=== PATIENT | female | born 1995 | race Caucasian/White ===

== ENCOUNTER 2017-11-24 08:33 | Emergency (ER) | payer OTHER ==
[~2017-11-24] VITALS: Ht 162.6 cm; Wt 121.0 kg
[~2017-11-24 08:33] MED LIST: CLIN150 PO; FAMO20 PO; IBUP800T23 PO
[2017-11-24 08:35] VITALS: BP 156/82; PULSE 112; RESP 20; TEMP 98.4; O2SAT 100
[2017-11-24 08:37] VITALS: PULSE 121
[2017-11-24] MEDS ORDERED: LEVO125T4 PO (09:13)
[2017-11-24] MEDS ORDERED: RANI150T PO (09:13)
--- NOTE | 2017-11-24 09:28 | PD ---
HPI Chief Complaint: Cardiac Complaint Time Seen by Provider: 09:10 Travel History International Travel<30 days: No Contact w/Intl Traveler<30days: No Traveled to known affect area: No History of Present Illness HPI Patient is a 22-year-old female morbidly obese family history of mom having her first heart attack in the late 40s presents emergency department for evaluation of palpitations and a "squishy" feeling in the middle of her chest.. States symptoms started about 300 this morning approximate 6 hours prior to presentation. Denies any chest pain shortness of breath abdominal pain nausea vomiting diarrhea constipation. States symptoms are minimal, context as above, associated signs symptoms as above, waxing and waning. PFSH Past Medical History Medical History: Denies Significant Hx Diminished Hearing: No GERD: Yes Thyroid Disease: Yes ?: Not Past Surgical History Surgical History: No Previous Surgery Social History Alcohol Use: No Tobacco Use: No Substance Use: No Allergies-Medications (Allergen,Severity, Reaction): Coded Allergies: amoxicillin (Unverified Adverse Reaction, Intermediate, HIVES, 06/21/17) Reported Meds & Prescriptions Reported Meds & Active Scripts Active Reported Levothyroxine (Levothyroxine Sodium) 125 Mcg Tab 125 Mcg PO DAILY Ranitidine (Ranitidine HCl) 150 Mg Tab 150 Mg PO BID Review of Systems Except as stated in HPI: all other systems reviewed are Neg Physical Exam Narrative GENERAL: Well-developed well-nourished in no obvious distress, morbidly obese SKIN: Focused skin assessment warm/dry. HEAD: Atraumatic. Normocephalic. EYES: Pupils equal and round. No scleral icterus. No injection or drainage. ENT: No nasal bleeding or discharge. Mucous membranes pink and moist. NECK: Trachea midline. No JVD. CARDIOVASCULAR: Regular rate and rhythm. No murmur appreciated. No murmurs gallops or rubs, 2+ bilateral equal pulses in all 4 extremities. RESPIRATORY: No accessory muscle use. Clear to auscultation. Breath sounds equal bilaterally. GASTROINTESTINAL: Abdomen soft, non-tender, nondistended. Hepatic and splenic margins not palpable. MUSCULOSKELETAL: No obvious deformities. No clubbing. No cyanosis. No edema. NEUROLOGICAL: Awake and alert. No obvious cranial nerve deficits. Motor grossly within normal limits. Normal speech. PSYCHIATRIC: Appropriate mood and affect; insight and judgment normal. Data Data Last Documented VS Vital Signs Date Time Temp Pulse Resp B/P (MAP) Pulse Ox O2 Delivery O2 Flow Rate FiO2 11/24/17 11:53 11/24/17 09:13 Room Air 11/24/17 08:37 121 11/24/17 08:35 98.4 20 100 Orders Orders Electrocardiogram (11/24/17 08:39) Complete Blood Count With Diff (11/24/17 09:33) Comprehensive Metabolic Panel (11/24/17 09:33) Magnesium (Mg) (11/24/17 09:33) Troponin I (11/24/17 09:33) Chest, Single Ap (11/24/17 09:33) Ecg Monitoring (11/24/17 09:33) Iv Access Insert/Monitor (11/24/17 09:33) Oximetry (11/24/17 09:33) Oxygen Administration (11/24/17 09:33) Sodium Chloride 0.9% Flush (Ns Flush) (11/24/17 09:45) Thyroid Stimulating Hormone (11/24/17 09:33) Free T3 (11/24/17 09:33) Free Thyroxine (T4) (11/24/17 09:33) Ed Discharge Order (11/24/17 11:38) Labs Laboratory Tests Test 11/24/17 09:35 White Blood Count 7.3 TH/MM3 Red Blood Count 5.00 MIL/MM3 Hemoglobin 16.0 GM/DL Hematocrit 46.3 % Mean Corpuscular Volume 92.7 FL Mean Corpuscular Hemoglobin 32.1 PG Mean Corpuscular Hemoglobin Concent 34.6 % Red Cell Distribution Width 13.5 % Platelet Count 207 TH/MM3 Mean Platelet Volume 9.6 FL Neutrophils (%) (Auto) 49.1 % Lymphocytes (%) (Auto) 39.3 % Monocytes (%) (Auto) 8.4 % Eosinophils (%) (Auto) 2.8 % Basophils (%) (Auto) 0.4 % Neutrophils # (Auto) 3.6 TH/MM3 Lymphocytes # (Auto) 2.9 TH/MM3 Monocytes # (Auto) 0.6 TH/MM3 Eosinophils # (Auto) 0.2 TH/MM3 Basophils # (Auto) 0.0 TH/MM3 CBC Comment DIFF FINAL Differential Comment Blood Urea Nitrogen 13 MG/DL Creatinine 0.77 MG/DL Random Glucose 81 MG/DL Total Protein 8.1 GM/DL Albumin 4.7 GM/DL Calcium Level 9.6 MG/DL Magnesium Level 2.2 MG/DL Alkaline Phosphatase 75 U/L Aspartate Amino Transf (AST/SGOT) 75 U/L Alanine Aminotransferase (ALT/SGPT) 138 U/L Total Bilirubin 0.6 MG/DL Sodium Level 142 MEQ/L Potassium Level 3.7 MEQ/L Chloride Level 108 MEQ/L Carbon Dioxide Level 28.7 MEQ/L Anion Gap 5 MEQ/L Estimat Glomerular Filtration Rate 94 ML/MIN Troponin I LESS THAN 0.02 NG/ML Free Thyroxine 0.97 NG/DL Free Triiodothyronine (T3) pg/dL 3.60 PG/ML Thyroid Stimulating Hormone 3rd Gen 5.060 uIU/ML MDM Medical Decision Making Medical Screen Exam Complete: Yes Emergency Medical Condition: Yes Differential Diagnosis Palpitations, ACS unlikely, MO unlikely Narrative Course Patient roomed in the emergency department, she appears well in no obvious distress. Initial workup including chest x-ray EKG labs including troponin negative. She is also supposed to be taking thyroid medication TSH mildly elevated free T3 and free T4 than normal limits. At this time and is excluded medical emergencies patient is stable for discharge for outpatient workup. Discussed weight loss, healthy lifestyle and return to ED criteria. Diagnosis Primary Impression: Atypical chest pain Additional Impression: Palpitations Additional Instructions: Follow up with your primary care physician Dr. Mittal today for further instruction. Disposition: 01 DISCHARGE HOME Condition: Stable Ray Hernandez MD Nov 24, 2017 09:28
[2017-11-24] MEDS ORDERED: SODIUM CHLORIDE 0.9% FLUSH 10 ML FLUSH IVF PRN (09:45)
[2017-11-24 09:59] LABS: AUTOMATED NEUTROPHIL # 3.6 TH/MM3 (1.8-7.7); BASOPHIL % 0.4 % (0.0-2.0); EOSINOPHIL # 0.2 TH/MM3 (0-0.4); EOSINOPHIL % 2.8 % (0.0-4.0); HEMATOCRIT 46.3 % (35.0-46.0); LYMPH % 39.3 % (9.0-44.0); LYMPHOCYTE # 2.9 TH/MM3 (1.0-4.8); MEAN CELL VOLUME 92.7 FL (80.0-100.0); MEAN CORPUSCULAR HEMOGLOBIN 32.1 PG (27.0-34.0); MEAN CORPUSCULAR HGB CONC 34.6 % (32.0-36.0); MEAN PLATELET VOLUME 9.6 FL (7.0-11.0); MONO % 8.4 % (0.0-8.0); MONOCYTE # 0.6 TH/MM3 (0-0.9); NEUT % 49.1 % (16.0-70.0); PLATELET COUNT 207 TH/MM3 (150-450); RED CELL DISTRIBUTION WIDTH 13.5 % (11.6-17.2); WHITE BLOOD COUNT 7.3 TH/MM3 (4.0-11.0)
--- NOTE | 2017-11-24 10:05 | RADRPT ---
EXAM DATE/TIME: 11/24/2017 09:46 [facility] COMPARISON: No previous studies available for comparison. INDICATIONS : Chest pain today. MEDICAL HISTORY : None. SURGICAL HISTORY : None. ENCOUNTER: Initial ACUITY: 1 day PAIN SCORE: 6/10 LOCATION: Bilateral chest FINDINGS: A single view of the chest demonstrates the lungs to be symmetrically aerated without evidence of mas s, infiltrate or effusion. The cardiomediastinal contours are unremarkable. Osseous structures are intact. CONCLUSION: Normal examination. Willam Saavedra MD on November 24, 2017 at 10:03 Board Certified Radiologist. This report was verified electronically.
[2017-11-24 10:31] LABS: ALBUMIN 4.7 GM/DL (3.4-5.0); BICARBONATE 28.7 MEQ/L (21.0-32.0); BLOOD UREA NITROGEN 13 MG/DL (7-18); CALCIUM 9.6 MG/DL (8.5-10.1); CHLORIDE 108 MEQ/L (98-107); CREATININE 0.77 MG/DL (0.50-1.00); GLOMERULAR FILTRATION RATE 94 ML/MIN (>89); GLUCOSE,RANDOM 81 MG/DL (74-106); MAGNESIUM 2.2 MG/DL (1.5-2.5); SODIUM (NA) 142 MEQ/L (136-145)
[2017-11-24 10:55] LABS: ALKALINE PHOSPHATASE 75 U/L (45-117); ALT (GPT) 138 U/L (10-53); AST (GOT) 75 U/L (15-37); FREE T4 0.97 NG/DL (0.76-1.46); TOTAL BILIRUBIN ADULT 0.6 MG/DL (0.2-1.0); TOTAL PROTEIN 8.1 GM/DL (6.4-8.2); TROPONIN I LESS THAN 0.02 NG/ML (0.02-0.05)
--- NOTE | 2017-11-24 21:51 | EKG ---
Date Performed: 11/24/2017 Time Performed: 08:48:45 PTAGE: 22 years EKG: Sinus rhythm NORMAL ECG NO PREVIOUS TRACING DOCTOR: Timmy Alonso Interpretating Date/Time 11/24/2017 21:49:45
== END 2017-11-24 11:54 | disposition home or self-care (01) ==
LOC: NEPD 08:33
DX: R07.89 Other chest pain (principal); K21.9 Gastro-esophageal reflux disease without esophagitis; E66.01 Morbid (severe) obesity due to excess calories; Z88.0 Allergy status to penicillin
CPT/HCPCS: 71045; 80053; 83735; 84439; 84443; 84481; 84484; 85025; 93005; 99285